=== PATIENT | male | born 1965 ===

== ENCOUNTER 2024-08-29 07:26 | Inpatient (IN) | payer OTHER ==
[~2024-08-29] VITALS: Ht 180.3 cm; Wt 86.3 kg
[2024-08-29] MEDS ORDERED: CELEXA40 M1 PO (14:25)
[2024-08-29] MEDS ORDERED: HydrOXYzine Pamoate 50 MG Cap PO PRN (19:35)
[2024-08-29] MEDS ORDERED: Ibuprofen 600 MG Tab PO PRN (19:40)
[2024-08-29] MEDS ORDERED: Calcium Carbonate 500 MG Tab Chew PO PRN (19:40)
[2024-08-29] MEDS ORDERED: Melatonin 3 MG Tab PO PRN (19:40)
[2024-08-29] MEDS ORDERED: Acetaminophen 325 MG TABLET PO PRN (19:40)
[2024-08-29] MEDS ORDERED: OLANZapine ODT 10 MG Tab MM PRN (19:40)
[2024-08-29] MEDS ORDERED: Ondansetron 4 MG SoluTab MM PRN (19:40)
[2024-08-29] MEDS ORDERED: Aluminum Hydroxide 320MG/5ML 473 ML PO PRN (19:40)
[2024-08-29] MEDS ORDERED: TraZODone HCl 50 MG Tab PO PRN (19:45)
[2024-08-29] MEDS ORDERED: Polyethylene Glycol 3350 17 gm PO PRN (19:45)
[2024-08-29 19:49] VITALS: BP 110/76
[2024-08-30 07:40] LABS: Cholesterol 186 mg/dL (50-200); HDL Cholesterol 47 mg/dL (>39); LDL/HDL RATIO 2.6; Low Density Lipoprotein Chol 122 mg/dL (0-110); Triglycerides 86 mg/dL (30-160); Very Low Density Lipoprot Chol 17 mg/dL (6-32)
[2024-08-30] MEDS ORDERED: Citalopram Hydrobromide 20 MG Tab PO SCH (09:00)
[2024-08-30] MEDS ORDERED: Multivitamins 1 Tab PO SCH (09:00)
[2024-08-30 20:38] VITALS: BP 124/83
[2024-08-31 08:57] VITALS: BP 121/82
[2024-08-31] MEDS ORDERED: OLANZapine 5 MG Tab PO SCH (09:00)
[2024-08-31 20:10] VITALS: BP 123/81
[2024-09-01 08:11] VITALS: BP 126/78
[2024-09-01] MEDS ORDERED: Nicotine Polacrilex 2 MG Gum PO PRN (16:00)
[2024-09-01 20:51] VITALS: BP 122/83
[2024-09-02 13:38] VITALS: BP 129/84
[2024-09-02 19:39] VITALS: BP 118/81
[2024-09-02] MEDS ORDERED: OLANZapine 5 MG Tab PO SCH (21:00)
[2024-09-03 08:52] VITALS: BP 127/91
[2024-09-03 19:18] VITALS: BP 138/97
[2024-09-04 08:39] VITALS: BP 137/110
[2024-09-04 19:31] VITALS: BP 135/88
[2024-09-05 06:56] VITALS: BP 135/102
[2024-09-05] MEDS ORDERED: OLAN5 PO (13:11)
== END 2024-09-05 13:23 | disposition home or self-care (01) | DRG 881 ==
LOC: BHU 07:26
PROVIDERS: ADMIT Psychiatry & Neurology Psychiatry
DX: F32.A Depression, unspecified (principal); R45.851 Suicidal ideations; F41.9 Anxiety disorder, unspecified; F12.90 Cannabis use, unspecified, uncomplicated; Z91.048 Other nonmedicinal substance allergy status
CPT/HCPCS: 36415; 80061; 83036; A9270